=== PATIENT | female | born 1960 | race Caucasian/White ===

== ENCOUNTER 2017-02-12 16:39 | Inpatient (IN) | payer OTHER ==
[~2017-02-12] VITALS: Ht 170.2 cm; Wt 63.0 kg
[2017-02-12 16:40] VITALS: BP_SYST 131
[2017-02-12] MEDS ORDERED: LORazepam 2 MG/ML VIAL (FOR ER USE) IVP ONE (17:45)
[2017-02-12] MEDS ORDERED: LORazepam 2 MG/ML VIAL (FOR ER USE) ONE (17:45)
[2017-02-12 18:15] LABS: BASOPHILS # (AUTO) 0.1 K/uL (0.0-0.2); EOSINOPHILS # (AUTO) 0.5 K/uL (0.0-0.4); EOSINOPHILS % (AUTO) 6.4 % (0.0-4.0); HEMATOCRIT 32.6 % (36-48); HEMOGLOBIN 10.7 g/dL (12.0-16.0); LYMPHOCYTES # (AUTO) 1.8 K/uL (1.0-5.5); LYMPHOCYTES % (AUTO) 24.4 % (20.5-51.5); MEAN CORPUSCULAR HEMOGLOBIN 30 pg (27-31); MEAN CORPUSCULAR HGB CONC 33 % (32-36); MEAN CORPUSCULAR VOLUME 91 fL (79.0-98.0); MONOCYTES # (AUTO) 0.4 K/uL (0.0-1.0); MONOCYTES % (AUTO) 5.5 % (1.7-9.3); NEUTROPHILS # (AUTO) 4.6 K/uL (1.8-7.7); NEUTROPHILS % (AUTO) 62.7 % (40.0-70.0); PLATELET COUNT (AUTO) 266 K/uL (130-430); RED CELL DISTRIBUTION WIDTH 15.3 % (9.0-15.0); WHITE BLOOD COUNT (AUTO) 7.4 K/uL (4.8-10.8)
[2017-02-12 18:23] LABS: CALCIUM 9.9 mg/dL (8.4-11.0); CREATININE 0.48 mg/dL (0.55-1.30); POTASSIUM 3.6 mmol/L (3.5-5.1)
[2017-02-12 18:27] LABS: ALBUMIN 2.8 g/dL (3.4-4.8); PHENYTOIN (DILANTIN) 14.8 ug/mL (10.0-20.0); TOTAL BILIRUBIN 0.2 mg/dL (0.0-1.0)
[2017-02-12] MEDS ORDERED: D5NS 1,000 ML IV SCH (18:45)
[2017-02-12 19:43] VITALS: BP_SYST 141
[2017-02-12] MEDS ORDERED: LORazepam 2 MG/ML VIAL IVP ONE (19:45)
[2017-02-12] MEDS ORDERED: LORazepam 2 MG/ML VIAL ONE (19:49)
[2017-02-12 20:00] VITALS: BP_SYST 123
[2017-02-12 20:03] VITALS: BP_SYST 142
[2017-02-12] MEDS ORDERED: ONDANSETRON HCL 4 MG/2 ML VIAL IVP PRN (20:15)
[2017-02-12] MEDS ORDERED: MORPHINE 2 MG/ML INJ. SYRINGE IVP PRN (20:15)
[2017-02-12] MEDS ORDERED: ZOLPIDEM TARTRATE 5 MG TABLET PO PRN (20:15)
[2017-02-12] MEDS ORDERED: ACETAMINOPHEN 325 MG TABLET PO PRN (20:15)
[2017-02-12] MEDS ORDERED: POTASSIUM CHLORIDE 10 MEQ TAB.PRT.SR PO PRN (20:15)
[2017-02-12] MEDS ORDERED: MAGNESIUM SULFATE 50 ML IV PRN (20:15)
[2017-02-12] MEDS ORDERED: DOCUSATE SODIUM 100 MG CAPSULE PO PRN (20:15)
[2017-02-12] MEDS: D5NS 1,000 ML IV SCH (20:34)
[2017-02-12] MEDS ORDERED: FURO10VI27 PO (20:43)
[2017-02-12] MEDS ORDERED: PHEN100O4 PO (20:43)
[2017-02-12] MEDS ORDERED: LEVE500T53 PO (20:43)
[2017-02-12] MEDS ORDERED: PANT20TA2 PO (20:43)
[2017-02-12] MEDS ORDERED: ASCO500T20 PO (20:43)
[2017-02-12] MEDS ORDERED: ZIN220 PO (20:43)
[2017-02-12] MEDS ORDERED: RIVA20TA PO (20:43)
[2017-02-12] MEDS ORDERED: NEU300 PO (20:43)
[2017-02-12] MEDS ORDERED: HYDR-1189 PO (20:43)
[2017-02-12] MEDS ORDERED: MULT PO (20:43)
[2017-02-12] MEDS ORDERED: PHEN60TA11 PO (20:43)
[2017-02-12] MEDS ORDERED: ACET325T53 PO (20:43)
[2017-02-12] MEDS ORDERED: ATOR20TA64 PO (20:43)
[2017-02-12] MEDS ORDERED: MONT10TA25 PO (20:47)
[2017-02-12] MEDS ORDERED: PHENYTOIN 100 MG/4 ML UDC (DILANTIN) PO SCH (21:00)
[2017-02-12] MEDS ORDERED: levETIRAcetam 500 MG TABLET PO SCH (21:00)
[2017-02-13] VITALS (7 sets, daily range): BP systolic 86–142
[2017-02-13] MEDS ORDERED: levETIRAcetam 500 MG in NS 100 ML IV ONE (00:30)
[2017-02-13] MEDS ORDERED: PHENYTOIN SODIUM 100 MG/2 ML VIAL (DILANTIN) IV ONE (00:30)
[2017-02-13 06:19] LABS: BASOPHILS # (AUTO) 0.1 K/uL (0.0-0.2); BASOPHILS % (AUTO) 1.3 % (0.0-2.0); EOSINOPHILS # (AUTO) 0.6 K/uL (0.0-0.4); EOSINOPHILS % (AUTO) 10.7 % (0.0-4.0); HEMATOCRIT 27.4 % (36-48); LYMPHOCYTES # (AUTO) 1.7 K/uL (1.0-5.5); LYMPHOCYTES % (AUTO) 30.2 % (20.5-51.5); MEAN CORPUSCULAR HEMOGLOBIN 30 pg (27-31); MEAN CORPUSCULAR HGB CONC 33 % (32-36); MEAN CORPUSCULAR VOLUME 91 fL (79.0-98.0); MONOCYTES # (AUTO) 0.3 K/uL (0.0-1.0); MONOCYTES % (AUTO) 5.8 % (1.7-9.3); NEUTROPHILS # (AUTO) 3.1 K/uL (1.8-7.7); PLATELET COUNT (AUTO) 222 K/uL (130-430); RED BLOOD CELL COUNT(AUTO) 3.02 MIL/uL (4.2-6.2); RED CELL DISTRIBUTION WIDTH 15.8 % (9.0-15.0); WHITE BLOOD COUNT (AUTO) 5.8 K/uL (4.8-10.8)
[2017-02-13 06:26] LABS: CALCIUM 9.2 mg/dL (8.4-11.0); CREATININE 0.51 mg/dL (0.55-1.30); POTASSIUM 3.5 mmol/L (3.5-5.1)
[2017-02-13] MEDS: GABAPENTIN 300 MG CAPSULE PO SCH ×3 (09:44→20:57)
[2017-02-13] MEDS: levETIRAcetam 500 MG in NS 100 ML IV SCH ×2 (09:44→22:03)
[2017-02-13] MEDS: PHENYTOIN SODIUM 100 MG/2 ML VIAL (DILANTIN) IV SCH ×2 (09:48→20:58)
[2017-02-13] MEDS: D5NS 1,000 ML IV SCH ×2 (09:53→22:13)
[2017-02-13] MEDS ORDERED: BALSAM PERU/CASTOR OIL 60 GM OINT...G. TP PRN (13:15)
[2017-02-13] MEDS: LORazepam 2 MG/ML VIAL IVP PRN ×4 (13:37→23:15)
[2017-02-13] MEDS: MONTELUKAST 10 MG TABLET PO SCH (18:26)
[2017-02-13 20:24] LABS: PHENOBARBITAL 32.4 ug/mL (15.0-40.0)
[2017-02-13] MEDS: ATORVASTATIN 20 MG TABLET PO SCH (20:56)
[2017-02-14] VITALS: BP_SYST 134
[2017-02-14 04:30] VITALS: BP_SYST 111
[2017-02-14 08:00] VITALS: BP_SYST 136
[2017-02-14] MEDS: levETIRAcetam 500 MG in NS 100 ML IV SCH (08:34)
[2017-02-14] MEDS: GABAPENTIN 300 MG CAPSULE PO SCH ×3 (08:35→21:34)
[2017-02-14] MEDS: QUEtiapine FUMARATE 25 MG TABLET PO SCH ×3 (08:35→21:35)
[2017-02-14] MEDS: PHENYTOIN SODIUM 100 MG/2 ML VIAL (DILANTIN) IV SCH (08:35)
[2017-02-14] MEDS: CITALOPRAM HYDROBROMIDE 20 MG TABLET PO SCH (08:35)
[2017-02-14] MEDS: BALSAM PERU/CASTOR OIL 60 GM OINT...G. TP SCH (08:36)
[2017-02-14] MEDS: D5NS 1,000 ML IV SCH ×2 (08:39→22:15)
[2017-02-14 12:29] VITALS: BP_SYST 129
[2017-02-14] MEDS: PHENobarbital 30 MG TABLET PO SCH ×2 (15:30→21:34)
[2017-02-14] MEDS: MORPHINE 2 MG/ML INJ. SYRINGE IVP PRN (15:48)
[2017-02-14 17:20] VITALS: BP_SYST 124
[2017-02-14] MEDS: MONTELUKAST 10 MG TABLET PO SCH (18:45)
[2017-02-14 20:10] VITALS: BP_SYST 140
[2017-02-14] MEDS: PHENYTOIN 100 MG CAPSULE PO SCH (21:35)
[2017-02-14] MEDS: levETIRAcetam 500 MG TABLET PO SCH (21:35)
[2017-02-14] MEDS: ATORVASTATIN 20 MG TABLET PO SCH (21:35)
[2017-02-15] VITALS (12 sets, daily range): BP systolic 96–146
[2017-02-15] MEDS: MORPHINE 2 MG/ML INJ. SYRINGE IVP PRN ×2 (02:52→17:26)
[2017-02-15] MEDS: D5NS 1,000 ML IV SCH ×2 (02:53→16:01)
[2017-02-15 07:04] LABS: BASOPHILS # (AUTO) 0.1 K/uL (0.0-0.2); EOSINOPHILS # (AUTO) 0.7 K/uL (0.0-0.4); EOSINOPHILS % (AUTO) 8.5 % (0.0-4.0); HEMATOCRIT 27.8 % (36-48); HEMOGLOBIN 9.1 g/dL (12.0-16.0); LYMPHOCYTES # (AUTO) 1.6 K/uL (1.0-5.5); LYMPHOCYTES % (AUTO) 20.4 % (20.5-51.5); MEAN CORPUSCULAR HEMOGLOBIN 30 pg (27-31); MEAN CORPUSCULAR HGB CONC 33 % (32-36); MEAN CORPUSCULAR VOLUME 92 fL (79.0-98.0); MONOCYTES # (AUTO) 0.5 K/uL (0.0-1.0); NEUTROPHILS % (AUTO) 64.1 % (40.0-70.0); PLATELET COUNT (AUTO) 207 K/uL (130-430); RED BLOOD CELL COUNT(AUTO) 3.02 MIL/uL (4.2-6.2); WHITE BLOOD COUNT (AUTO) 7.9 K/uL (4.8-10.8)
[2017-02-15 07:22] LABS: CALCIUM 9.1 mg/dL (8.4-11.0); CREATININE 0.36 mg/dL (0.55-1.30); POTASSIUM 3.7 mmol/L (3.5-5.1)
[2017-02-15] MEDS: PHENYTOIN 100 MG CAPSULE PO SCH ×2 (10:13→21:18)
[2017-02-15] MEDS: CITALOPRAM HYDROBROMIDE 20 MG TABLET PO SCH (10:13)
[2017-02-15] MEDS: QUEtiapine FUMARATE 25 MG TABLET PO SCH ×3 (10:13→21:16)
[2017-02-15] MEDS: GABAPENTIN 300 MG CAPSULE PO SCH ×3 (10:13→21:16)
[2017-02-15] MEDS: levETIRAcetam 500 MG TABLET PO SCH ×2 (10:13→21:16)
[2017-02-15] MEDS: PHENobarbital 30 MG TABLET PO SCH ×3 (10:14→21:15)
[2017-02-15] MEDS: BALSAM PERU/CASTOR OIL 60 GM OINT...G. TP SCH (10:25)
[2017-02-15] MEDS: MONTELUKAST 10 MG TABLET PO SCH (17:26)
[2017-02-15] MEDS: VANCOMYCIN HCL ORAL SOLUTION 250 MG/5 ML, 80 ML PO SCH ×2 (18:16→23:51)
[2017-02-15] MEDS: LORazepam 2 MG/ML VIAL IVP PRN ×2 (18:45→18:51)
[2017-02-15] MEDS: ATORVASTATIN 20 MG TABLET PO SCH (21:16)
[2017-02-16] VITALS (7 sets, daily range): BP systolic 105–152
[2017-02-16] MEDS: HYDROcodone/ACETAMIN 5-325 MG TAB (NORCO/ VICODIN) PO PRN (03:28)
[2017-02-16] MEDS: MORPHINE 2 MG/ML INJ. SYRINGE IVP PRN (04:00)
[2017-02-16] MEDS: D5NS 1,000 ML IV SCH ×2 (04:39→17:37)
[2017-02-16] MEDS: VANCOMYCIN HCL ORAL SOLUTION 250 MG/5 ML, 80 ML PO SCH ×3 (05:11→17:40)
[2017-02-16 08:05] LABS: CALCIUM 8.7 mg/dL (8.4-11.0); CREATININE 0.45 mg/dL (0.55-1.30); POTASSIUM 4.4 mmol/L (3.5-5.1)
[2017-02-16 08:40] LABS: BASOPHILS % (AUTO) 0.7 % (0.0-2.0); EOSINOPHILS # (AUTO) 0.7 K/uL (0.0-0.4); EOSINOPHILS % (AUTO) 10.5 % (0.0-4.0); HEMATOCRIT 28.1 % (36-48); HEMOGLOBIN 9.3 g/dL (12.0-16.0); LYMPHOCYTES # (AUTO) 1.6 K/uL (1.0-5.5); LYMPHOCYTES % (AUTO) 25.5 % (20.5-51.5); MEAN CORPUSCULAR HEMOGLOBIN 30 pg (27-31); MEAN CORPUSCULAR HGB CONC 33 % (32-36); MEAN CORPUSCULAR VOLUME 92 fL (79.0-98.0); MONOCYTES # (AUTO) 0.4 K/uL (0.0-1.0); MONOCYTES % (AUTO) 6.4 % (1.7-9.3); NEUTROPHILS # (AUTO) 3.7 K/uL (1.8-7.7); NEUTROPHILS % (AUTO) 56.9 % (40.0-70.0); PLATELET COUNT (AUTO) 207 K/uL (130-430); RED BLOOD CELL COUNT(AUTO) 3.07 MIL/uL (4.2-6.2); RED CELL DISTRIBUTION WIDTH 15.8 % (9.0-15.0); WHITE BLOOD COUNT (AUTO) 6.4 K/uL (4.8-10.8)
[2017-02-16] MEDS: CITALOPRAM HYDROBROMIDE 20 MG TABLET PO SCH (09:07)
[2017-02-16] MEDS: levETIRAcetam 500 MG TABLET PO SCH ×2 (09:07→20:52)
[2017-02-16] MEDS: PHENobarbital 30 MG TABLET PO SCH ×3 (09:08→20:52)
[2017-02-16] MEDS: GABAPENTIN 300 MG CAPSULE PO SCH ×3 (09:08→20:51)
[2017-02-16] MEDS: QUEtiapine FUMARATE 25 MG TABLET PO SCH ×3 (09:09→20:51)
[2017-02-16] MEDS: PHENYTOIN 100 MG CAPSULE PO SCH ×2 (09:15→20:53)
[2017-02-16] MEDS: BALSAM PERU/CASTOR OIL 60 GM OINT...G. TP SCH (09:19)
[2017-02-16] MEDS: LORazepam 2 MG/ML VIAL IVP PRN ×2 (13:48→20:07)
[2017-02-16] MEDS: MONTELUKAST 10 MG TABLET PO SCH (17:39)
[2017-02-16] MEDS: ATORVASTATIN 20 MG TABLET PO SCH (20:52)
[2017-02-17] MEDS: VANCOMYCIN HCL ORAL SOLUTION 250 MG/5 ML, 80 ML PO SCH ×5 (00:40→23:28)
[2017-02-17] MEDS: MORPHINE 2 MG/ML INJ. SYRINGE IVP PRN ×5 (01:46→22:18)
[2017-02-17] MEDS: LORazepam 2 MG/ML VIAL IVP PRN ×2 (02:30→14:07)
[2017-02-17 04:00] VITALS: BP_SYST 101
[2017-02-17] MEDS: D5NS 1,000 ML IV SCH ×3 (07:00→22:19)
[2017-02-17 07:02] LABS: BASOPHILS % (AUTO) 0.6 % (0.0-2.0); EOSINOPHILS # (AUTO) 0.5 K/uL (0.0-0.4); EOSINOPHILS % (AUTO) 9.3 % (0.0-4.0); HEMATOCRIT 25.2 % (36-48); HEMOGLOBIN 8.3 g/dL (12.0-16.0); LYMPHOCYTES # (AUTO) 1.4 K/uL (1.0-5.5); LYMPHOCYTES % (AUTO) 25.2 % (20.5-51.5); MEAN CORPUSCULAR HEMOGLOBIN 30 pg (27-31); MEAN CORPUSCULAR HGB CONC 33 % (32-36); MEAN CORPUSCULAR VOLUME 92 fL (79.0-98.0); MONOCYTES # (AUTO) 0.5 K/uL (0.0-1.0); MONOCYTES % (AUTO) 8.1 % (1.7-9.3); NEUTROPHILS # (AUTO) 3.3 K/uL (1.8-7.7); NEUTROPHILS % (AUTO) 56.8 % (40.0-70.0); PLATELET COUNT (AUTO) 190 K/uL (130-430); RED BLOOD CELL COUNT(AUTO) 2.74 MIL/uL (4.2-6.2); RED CELL DISTRIBUTION WIDTH 16.1 % (9.0-15.0); WHITE BLOOD COUNT (AUTO) 5.7 K/uL (4.8-10.8)
[2017-02-17 07:05] LABS: CALCIUM 8.8 mg/dL (8.4-11.0); CREATININE 0.44 mg/dL (0.55-1.30); POTASSIUM 3.8 mmol/L (3.5-5.1)
[2017-02-17 08:20] VITALS: BP_SYST 140
[2017-02-17] MEDS: PHENobarbital 30 MG TABLET PO SCH ×3 (09:16→21:35)
[2017-02-17] MEDS: GABAPENTIN 300 MG CAPSULE PO SCH ×3 (09:17→21:34)
[2017-02-17] MEDS: QUEtiapine FUMARATE 25 MG TABLET PO SCH ×3 (09:17→21:38)
[2017-02-17] MEDS: CITALOPRAM HYDROBROMIDE 20 MG TABLET PO SCH (09:17)
[2017-02-17] MEDS: PHENYTOIN 100 MG CAPSULE PO SCH ×2 (09:17→21:35)
[2017-02-17] MEDS: levETIRAcetam 500 MG TABLET PO SCH ×2 (09:17→21:35)
[2017-02-17] MEDS: BALSAM PERU/CASTOR OIL 60 GM OINT...G. TP SCH (09:18)
[2017-02-17] MEDS: HYDROcodone/ACETAMIN 5-325 MG TAB (NORCO/ VICODIN) PO PRN (09:19)
[2017-02-17] MEDS ORDERED: QUET50TA13 PO (10:09)
[2017-02-17 11:30] VITALS: BP_SYST 135
[2017-02-17 16:02] VITALS: BP_SYST 92
[2017-02-17] MEDS: MONTELUKAST 10 MG TABLET PO SCH (17:32)
[2017-02-17 19:45] VITALS: BP_SYST 116
[2017-02-17] MEDS: ATORVASTATIN 20 MG TABLET PO SCH (21:34)
[2017-02-18] VITALS (7 sets, daily range): BP systolic 124–141
[2017-02-18] MEDS: VANCOMYCIN HCL ORAL SOLUTION 250 MG/5 ML, 80 ML PO SCH ×3 (05:47→17:53)
[2017-02-18] MEDS: PHENYTOIN 100 MG CAPSULE PO SCH (08:40)
[2017-02-18] MEDS: CITALOPRAM HYDROBROMIDE 20 MG TABLET PO SCH (08:40)
[2017-02-18] MEDS: levETIRAcetam 500 MG TABLET PO SCH (08:41)
[2017-02-18] MEDS: GABAPENTIN 300 MG CAPSULE PO SCH ×2 (08:41→16:17)
[2017-02-18] MEDS: QUEtiapine FUMARATE 25 MG TABLET PO SCH ×2 (08:41→16:17)
[2017-02-18] MEDS: PHENobarbital 30 MG TABLET PO SCH ×2 (08:41→16:18)
[2017-02-18] MEDS: BALSAM PERU/CASTOR OIL 60 GM OINT...G. TP SCH (08:45)
[2017-02-18] MEDS: D5NS 1,000 ML IV SCH (08:45)
[2017-02-18] MEDS: LORazepam 2 MG/ML VIAL IVP PRN (11:05)
[2017-02-18] MEDS: HYDROcodone/ACETAMIN 5-325 MG TAB (NORCO/ VICODIN) PO PRN (16:18)
[2017-02-18] MEDS: MONTELUKAST 10 MG TABLET PO SCH (17:52)
== END 2017-02-18 20:00 | DRG 53 ==
LOC: SED 16:39 → STU 18:40 → SED 18:40 → STU 19:01
PROVIDERS: ADMIT General Practice; ATTEND General Practice
DX: G40.901 Epilepsy, unspecified, not intractable, with status epilepticus (principal); G93.41 Metabolic encephalopathy; L89.154 Pressure ulcer of sacral region, stage 4; E44.0 Moderate protein-calorie malnutrition; A04.7 Enterocolitis due to Clostridium difficile; R45.851 Suicidal ideations; F29 Unspecified psychosis not due to a substance or known physiological condition; F33.3 Major depressive disorder, recurrent, severe with psychotic symptoms; L89.612 Pressure ulcer of right heel, stage 2; J44.9 Chronic obstructive pulmonary disease, unspecified; I73.9 Peripheral vascular disease, unspecified; Z89.512 Acquired absence of left leg below knee; Z91.19 Patient's noncompliance with other medical treatment and regimen; Z86.73 Personal history of transient ischemic attack (TIA), and cerebral infarction without residual deficits; Z91.14 Patient's other noncompliance with medication regimen; Z74.01 Bed confinement status; Z68.21 Body mass index [BMI] 21.0-21.9, adult; Z88.1 Allergy status to other antibiotic agents; Z88.0 Allergy status to penicillin; Z91.041 Radiographic dye allergy status; Z88.8 Allergy status to other drugs, medicaments and biological substances
CPT/HCPCS: 36415; 70450-TC; 71010; 80048; 80053; 80184-TC; 80185-TC; 83735-TC; 85025; 87081; 87230-TC; 93005; 96374; 99291; J1165; J1953; J2060; J2270; J2405; J3370; J7042; J7060